=== PATIENT | female | born 1945 | race Caucasian/White ===

== ENCOUNTER 2018-05-11 13:35 | Emergency (ER) | payer MEDICARE ==
[~2018-05-11] VITALS: Ht 160 cm; Wt 81.6 kg
[~2018-05-11 13:35] MED LIST: FERR-15 PO; FLOR250 PO; GLIP1TAB8 PO; INSU100S55 SC; LACT10SO1 PO; LANS30EC68 PO; LEVO750T2 PO; LISI2.5T5 PO; METO25TA PO; MIC5 PO; SIMV20TA1 PO; SUCR1TAB56 PO; [UNRECOGNIZED DRUG - CODE] PO
[2018-05-11 13:37] VITALS: BP 178/82
--- NOTE | 2018-05-11 13:43 | NUR ---
A 72 YO F BIB DAUGHTER W/ C/O FACIAL DROOP AND NECK PAIN SINCE 0830 THIS MORNING WHEN SHE WOKE UP. DENIES N/V. BL WOOL TAMPER SYMMETRY. NO WEAKNESS NOTED. PT REPORTS BL EYE PAIN. AAOX4, GCS 15. SPEAKING IN FULL, COMPLETE SENTENCES. RR EVEN AND UNLABORED, LUNGS BL CLEAR. SKIN WARM, DRY TO THE TOUCH. PT AMBULATORY W/ STEADY GAIT, NO LEG WEAKNESS. L SIDED FACIAL DROOP NOTED WITH WRINKLING OF THE FOREHEAD. CARDINAL GAZES INTACT. PERRLA 3MM BILAT. SMILE ASSYMETRY. 9/10 PAIN IN NECK SINCE 0830 AM. ER NOTIFIED. SAFETY PRECAUTIONS IMPLEMENTED. DAUGHTER AT BEDSIDE. WILL CONTINUE TO MONITOR.
[2018-05-11] MEDS ORDERED: KETOROLAC 30 MG/ML VIAL IM ONE (14:10)
[2018-05-11] MEDS ORDERED: ACYCLOVIR 200 MG CAP PO ONE (14:10)
[2018-05-11] MEDS ORDERED: ONDANSETRON 4 MG/2 ML VIAL IVP ONE (14:10)
[2018-05-11] MEDS ORDERED: DEXAMETHASONE 10 MG/ML VIAL IM ONE (14:10)
[2018-05-11 14:32] LABS: BASOPHILS % (AUTO) 0.3 % (0.0-2.0); EOSINOPHILS # (AUTO) 0.3 K/uL (0-0.4); EOSINOPHILS % (AUTO) 4.3 % (0.0-4.0); HEMATOCRIT 30.4 % (36-48); HEMOGLOBIN 9.7 g/dL (12.0-16.0); LYMPHOCYTES # (AUTO) 1.2 K/uL (2.5-16.5); LYMPHOCYTES % (AUTO) 19.5 % (20.5-51.1); MEAN CORPUSCULAR HEMOGLOBIN 20 pg (27-31); MEAN CORPUSCULAR HGB CONC 32 g/dL (33-37); MEAN CORPUSCULAR VOLUME 61.4 fL (80-94); MONOCYTES # (AUTO) 0.3 K/uL (0.8-1.0); NEUTROPHILS # (AUTO) 4.4 K/uL (1.8-7.7); NEUTROPHILS % (AUTO) 70.9 % (42.2-75.2); PLATELET COUNT (AUTO) 245 K/uL (140-450); RED BLOOD CELL COUNT(AUTO) 4.95 MIL/uL (4.20-5.40); RED CELL DISTRIBUTION WIDTH 15.8 % (11.6-13.7); WHITE BLOOD COUNT (AUTO) 6.3 K/uL (4.8-10.8)
--- NOTE | 2018-05-11 14:45 | NUR ---
PT. RESTING COMFORTABLY IN BED, RR EVEN AND UNLABORED. WILL CONTINUE TO MONITOR. VSS.
[2018-05-11 14:51] LABS: APPEARANCE,URINE CLEAR (CLEAR); BILIRUBIN,URINE NEGATIVE (NEGATIVE); BLOOD, URINE MODERATE (NEGATIVE); COLOR,URINE YELLOW (YELLOW); NITRITE, URINE NEGATIVE (NEGATIVE); PH,URINE 7.5 (5.0-9.0); UGLUCOSE NEGATIVE (NEGATIVE)
[2018-05-11 14:52] LABS: ANION GAP 12.5 (8-16); ASPARTATE AMINOTRANSFERASE 32 U/L (15-37); CARBON DIOXIDE 28.2 mmol/L (21-32); CHLORIDE 101 mmol/L (98-107); CREATININE 1.3 mg/dL (0.6-1.3); GLUCOSE 179 mg/dL (74-106); POTASSIUM 4.7 mmol/L (3.5-5.1); SODIUM SERUM 137 mmol/L (136-145); TOTAL BILIRUBIN 0.7 mg/dL (0.0-1.0); UREA NITROGEN, BLOOD 30 mg/dL (7-18)
[2018-05-11 14:54] LABS: LEUKOCYTE ESTERASE ,URINE 4+ (NEGATIVE)
[2018-05-11 15:02] LABS: PROTHROMBIN TIME 9.6 secs (10.8-13.4)
[2018-05-11 15:12] LABS: RBC,URINE 0-5 (RARE) /HPF (0-5); WBC,URINE 20-60 /HPF (0-5)
--- NOTE | 2018-05-11 15:16 | NUR ---
PT TAKEN TO CT SCAN VIA GURNEY BY CONTRACT ADMIN
--- NOTE | 2018-05-11 16:00 | NUR ---
PT. RESTING COMFORTABLY IN BED, RR EVEN AND UNLABORED. VSS. WILL CONTINUE TO MONITOR.
[2018-05-11 16:50] VITALS: BP 155/75
--- NOTE | 2018-05-11 16:50 | NUR ---
Patient discharged with v/s stable. Written and verbal after care instructions given and explained. Patient alert, oriented and verbalized understanding of instructions. Ambulatory with steady gait. All questions addressed prior to discharge. ID band removed. Patient advised to follow up with PMD. Rx of ACYCLOVIR 200MG , PREDNISONE 10MG given. Patient educated on indication of medication including possible reaction and side effects. Opportunity to ask questions provided and answered.
== END 2018-05-11 16:50 | disposition home or self-care (01) ==
LOC: MED 13:35
DX: G51.0 Bell's palsy (principal); E11.9 Type 2 diabetes mellitus without complications; I10 Essential (primary) hypertension; Z79.899 Other long term (current) drug therapy; Z79.84 Long term (current) use of oral hypoglycemic drugs
CPT/HCPCS: 36415; 70450; 71045; 80053; 81001; 82948; 84484; 85025; 85610; 85651; 85730; 86140; 87086; 96372; 96374; 99284; J1100; J1885; J2405; Q0092; 87186; 93005

== ENCOUNTER 2023-05-01 11:29 | Emergency (ER) | payer MEDICARE, OTHER ==
[~2023-05-01] VITALS: Ht 160 cm; Wt 51.3 kg
[~2023-05-01 11:29] MED LIST changes: +GLIP1TAB40 PO; -GLIP1TAB8 PO; +GLYB-200 PO; +LACT-103 PO; -LACT10SO1 PO; -LEVO750T2 PO; +LISI2.5T14 PO; -LISI2.5T5 PO; -MIC5 PO; +SIMV-372 PO; -SIMV20TA1 PO
[2023-05-01 11:52] VITALS: BP 145/67; PULSE 97; RESP 20; TEMP 97.5; O2SAT 100
== END 2023-05-01 12:04 | disposition left against medical advice (07) ==
LOC: MED 11:29
DX: R30.0 Dysuria (principal); Z53.21 Procedure and treatment not carried out due to patient leaving prior to being seen by health care provider
CPT/HCPCS: 99281

== ENCOUNTER 2024-02-20 18:05 | Inpatient (IN) | payer OTHER ==
[~2024-02-20] VITALS: Ht 147.3 cm; Wt 53.1 kg
[~2024-02-20 18:05] MED LIST changes: -LACT-103 PO; +LACT-191 PO
[2024-02-20 18:10] VITALS: BP 143/59; PULSE 85; RESP 18; TEMP 101.4; O2SAT 96
[2024-02-20 18:26] VITALS: O2SAT 95
[2024-02-20 19:03] LABS: BILIRUBIN,URINE 1+ (NEGATIVE); BLOOD, URINE 3+ (NEGATIVE); LEUKOCYTE ESTERASE ,URINE 3+ (NEGATIVE); NITRITE, URINE POSITIVE (NEGATIVE); PH,URINE 5.5 (5.0-9.0); PROTEIN,URINE 3+ (NEGATIVE); UGLUCOSE TRACE (NEGATIVE)
[2024-02-20 19:06] LABS: APPEARANCE,URINE CLOUDY (CLEAR); COLOR,URINE ORANGE (YELLOW)
[2024-02-20] MEDS: NACL 0.9% 1,000 ML IV ONE ×2 (19:07→23:30)
[2024-02-20 19:10] LABS: ICTOTEST POSITIVE (NEGATIVE)
[2024-02-20 19:10] LABS: CHLORIDE 119 mmol/L (98-107); CREATININE 1.4 mg/dL (0.6-1.3); GLUCOSE 111 mg/dL (74-106); POTASSIUM 3.5 mmol/L (3.5-5.1); SODIUM SERUM 141 mmol/L (136-145); UREA NITROGEN, BLOOD 35 mg/dL (7-18)
[2024-02-20 19:11] LABS: INR 1.68 (0.8-1.2); PROTHROMBIN TIME 17.1 secs (10.8-13.4)
[2024-02-20 19:15] LABS: FLU A ANTIGEN negative (NEGATIVE); FLU B ANTIGEN NEGATIVE (NEGATIVE)
[2024-02-20 19:15] LABS: BACTERIA,URINE 2+ /HPF (None Seen); MUCUS,URINE 1+ /LPF (None Seen); RBC,URINE 11-20 (MOD) /HPF (0-5); SQUAMOUS EPITHELIAL CELL,UR 0-3 (FEW) /LPF (0-3 (FEW)); WBC,URINE TOO MANY TO COUNT /HPF (0-5)
[2024-02-20 19:16] LABS: AMPHETAMINE, URINE NEGATIVE ng/ml (NEG <=1000); BARBITURATE, URINE NEGATIVE ng/ml (NEG <=200); BENZODIAZEPINE, URINE NEGATIVE ng/mL (NEG <=200); CANNABINOID, URINE NEGATIVE ng/mL (NEG <=50); COCAINE, URINE NEGATIVE ng/mL (NEG <=300); OPIATE, URINE POSITIVE ng/mL (NEG <=2000); PHENCYCLIDINE SCREEN,URINE NEGATIVE ng/mL (NEG <=25)
[2024-02-20 19:18] LABS: CREATINE KINASE, TOTAL 29 U/L (26-192)
[2024-02-20 19:31] LABS: ANION GAP 21.6 (8-16); CARBON DIOXIDE 3.9 mmol/L (21-32); LACTIC ACID 2.6 mmol/L (0.4-2.0); WHITE BLOOD COUNT (AUTO) 1.1 K/uL (4.8-10.8)
[2024-02-20 19:32] LABS: CALCIUM 4.5 mg/dL (8.5-10.1)
[2024-02-20 19:34] LABS: ACETONE, SERUM Negative (NEGATIVE)
[2024-02-20 19:35] LABS: HEMATOCRIT 12.9 % (36-48); MEAN CORPUSCULAR HEMOGLOBIN 19 pg (27-31); MEAN CORPUSCULAR HGB CONC 31 g/dL (33-37); RED CELL DISTRIBUTION WIDTH 15.9 % (11.6-13.7)
[2024-02-20 19:36] LABS: EOSINOPHILS % (AUTO) 0.7 % (0.0-4.0); LYMPHOCYTES # (AUTO) 0.1 K/uL (2.5-16.5); LYMPHOCYTES % (AUTO) 8.4 % (20.5-51.1); MONOCYTES % (AUTO) 1.4 % (1.7-9.3); NEUTROPHILS # (AUTO) 0.9 K/uL (1.8-7.7); NEUTROPHILS % (AUTO) 89.5 % (42.2-75.2); PLATELET COUNT (AUTO) 84 K/uL (140-450)
[2024-02-20 19:49] LABS: BASOPHILS % (AUTO) 0.1 % (0.0-2.0); EOSINOPHILS % (AUTO) 0.2 % (0.0-4.0); LYMPHOCYTES # (AUTO) 0.3 K/uL (2.5-16.5); LYMPHOCYTES % (AUTO) 4.3 % (20.5-51.1); MEAN CORPUSCULAR HEMOGLOBIN 19 pg (27-31); MEAN CORPUSCULAR HGB CONC 31 g/dL (33-37); MEAN CORPUSCULAR VOLUME 61.9 fL (80-94); MONOCYTES # (AUTO) 0.1 K/uL (0.8-1.0); NEUTROPHILS # (AUTO) 5.7 K/uL (1.8-7.7); NEUTROPHILS % (AUTO) 93.4 % (42.2-75.2); PLATELET COUNT (AUTO) 115 K/uL (140-450); RED CELL DISTRIBUTION WIDTH 16.3 % (11.6-13.7); WHITE BLOOD COUNT (AUTO) 6.1 K/uL (4.8-10.8)
[2024-02-20] MEDS ORDERED: cefTRIAXone 1,000 MG VIAL ONE (19:56)
[2024-02-20] MEDS: ACETAMINOPHEN 650 MG SUPP RC ONE (20:08)
[2024-02-20 20:09] LABS: HEMOGLOBIN 6.5 g/dL (12.0-16.0)
[2024-02-20 20:18] LABS: ANION GAP 22.2 (8-16); CALCIUM 7.5 mg/dL (8.5-10.1); CARBON DIOXIDE 10.8 mmol/L (21-32); CHLORIDE 105 mmol/L (98-107); CREATININE 2.4 mg/dL (0.6-1.3); GLUCOSE 170 mg/dL (74-106); SODIUM SERUM 133 mmol/L (136-145); UREA NITROGEN, BLOOD 56 mg/dL (7-18)
[2024-02-20] MEDS ORDERED: MAG SULF 2000 MG/WATER PREMIX 50 ML IV PRN (20:30)
[2024-02-20] MEDS ORDERED: POTASSIUM CHLORIDE 10 MEQ TABER PO PRN (20:30)
[2024-02-20] MEDS ORDERED: LORazepam 1 MG TAB PO PRN (20:30)
[2024-02-20] MEDS ORDERED: POTASSIUM CHL 20MEQ/D5-NS 1,000 ML IV ONE (20:30)
[2024-02-20] MEDS ORDERED: DEXTROSE 50% 50 ML SYR IVP PRN (20:40)
[2024-02-20] MEDS ORDERED: NITROGLYCERIN 0.4 MG TAB SL PRN (20:40)
[2024-02-20] MEDS: NACL 0.9% 1,000 ML IV SCH (20:59)
[2024-02-20] MEDS: FERROUS SULFATE 325 MG TABEC PO SCH (21:00)
[2024-02-20] MEDS: METOPROLOL 25 MG TAB PO SCH (21:00)
[2024-02-20] MEDS ORDERED: PIPERACILLIN/TAZOBACTAM 3.375 GM in DEXTROSE 5% 50 ML IV SCH (21:00)
[2024-02-20] MEDS: SIMVASTATIN 20 MG TAB PO SCH (21:00)
[2024-02-20] MEDS ORDERED: PIPERACILLIN/TAZOBACTAM 2.25 GM VIAL IV ONE (21:04)
[2024-02-20] MEDS: PIPERACILLIN/TAZOBACTAM 2.25 GM in DEXTROSE 5% 50 ML IV SCH (21:06)
[2024-02-20] MEDS: BLOOD GLUCOSE MONITORING 1 DEV DEV FS SCH (22:27)
[2024-02-20] MEDS ORDERED: NOREPINEPHRINE 4 MG/4 ML VIAL IV ONE (23:12)
[2024-02-20] MEDS: NOREPINEPHRINE 4 MG in DEXTROSE 5% 250 ML IV PRN (23:23)
[2024-02-21] VITALS (22 sets, daily range): BP systolic 99–158; BP diastolic 50–127; PULSE 88–119; RESP 23–40; TEMP 98.2–98.9; O2SAT 90–99
[2024-02-21 00:34] LABS: LACTIC ACID 1.8 mmol/L (0.4-2.0)
[2024-02-21] MEDS: ACETAMINOPHEN 325 MG TAB PO PRN (05:43)
[2024-02-21] MEDS: PIPERACILLIN/TAZOBACTAM 2.25 GM VIAL IV ONE (05:44)
[2024-02-21] MEDS: ECOTRIN 81 MG TABEC PO SCH (08:41)
[2024-02-21 09:42] LABS: ALANINE AMINOTRANSFERASE 18 U/L (12-78); ALBUMIN 2.4 g/dL (3.4-5.0); ALKALINE PHOSPHATASE 66 U/L (50-136); ANION GAP 22.4 (8-16); ASPARTATE AMINOTRANSFERASE 24 U/L (15-37); CALCIUM 6.8 mg/dL (8.5-10.1); CARBON DIOXIDE 10.6 mmol/L (21-32); CHLORIDE 105 mmol/L (98-107); CREATININE 2.3 mg/dL (0.6-1.3); GLUCOSE 242 mg/dL (74-106); PHOSPHORUS 3.5 mg/dL (2.5-4.9); SODIUM SERUM 133 mmol/L (136-145); TOTAL BILIRUBIN 1.3 mg/dL (0.0-1.0); TOTAL PROTEIN, SERUM 5.5 g/dL (6.4-8.2); UREA NITROGEN, BLOOD 53 mg/dL (7-18)
[2024-02-21 09:46] LABS: MAGNESIUM 0.9 mg/dL (1.8-2.4)
[2024-02-21 09:57] LABS: BASOPHILS % (AUTO) 0.1 % (0.0-2.0); EOSINOPHILS % (AUTO) 0.2 % (0.0-4.0); LYMPHOCYTES # (AUTO) 0.4 K/uL (2.5-16.5); LYMPHOCYTES % (AUTO) 2.5 % (20.5-51.1); MEAN CORPUSCULAR HEMOGLOBIN 20 pg (27-31); MEAN CORPUSCULAR HGB CONC 32 g/dL (33-37); MONOCYTES # (AUTO) 0.6 K/uL (0.8-1.0); MONOCYTES % (AUTO) 4.2 % (1.7-9.3); NEUTROPHILS # (AUTO) 14.1 K/uL (1.8-7.7); PLATELET COUNT (AUTO) 137 K/uL (140-450); RED CELL DISTRIBUTION WIDTH 20.8 % (11.6-13.7); WHITE BLOOD COUNT (AUTO) 15.2 K/uL (4.8-10.8)
[2024-02-21] MEDS: MAG SULF 2000 MG/WATER PREMIX 100 ML IV SCH (10:41)
[2024-02-21 10:44] LABS: BLOOD GAS PH 7.355 (7.350-7.450)
[2024-02-21 10:45] LABS: BLOOD GAS BASE EXCESS -14.5 mmol/L (-2.0-3.0); BLOOD GAS HCO3 9.3 mmol/L (21.0-28.0); BLOOD GAS PCO2 17.1 mmHg (32.0-45.0); BLOOD GAS PO2 91.1 mmHg (83.0-108.0)
[2024-02-21 10:46] LABS: BLOOD GAS O2 SAT% 96.8 % (94.0-98.0); FRACTIONATED INSPIRED OXYGEN 0.28 % (0.21-100.00)
[2024-02-21] MEDS: SODIUM BICARBONATE 8.4% 100 MEQ in DEXTROSE 5% 1,000 ML IV SCH (11:45)
[2024-02-21] MEDS: INSULIN LISPRO SLIDING SCALE 100 UNITS/ML VIAL SUBQ PRN (11:53)
[2024-02-21] MEDS: MIDODRINE 5 MG TAB PO SCH (14:29)
[2024-02-21] MEDS: AZITHROMYCIN 500 MG in DEXTROSE 5% 250 ML IV SCH (14:31)
[2024-02-21] MEDS: SODIUM BICARBONATE 8.4% 150 MEQ in DEXTROSE 5% 1,000 ML IV SCH (16:21)
[2024-02-21 18:55] LABS: HEMOGLOBIN 7.8 g/dL (12.0-16.0)
[2024-02-21 19:16] LABS: ANION GAP 21.4 (8-16); CALCIUM 7.4 mg/dL (8.5-10.1); CHLORIDE 104 mmol/L (98-107); CREATININE 1.9 mg/dL (0.6-1.3); GLUCOSE 251 mg/dL (74-106); POTASSIUM 4.4 mmol/L (3.5-5.1); SODIUM SERUM 134 mmol/L (136-145); UREA NITROGEN, BLOOD 50 mg/dL (7-18)
[2024-02-22] VITALS (30 sets, daily range): BP systolic 94–152; BP diastolic 35–76; PULSE 71–111; RESP 19–36; TEMP 97.6–99.1; O2SAT 92–100
[2024-02-22 05:06] LABS: BASOPHILS % (AUTO) 0.2 % (0.0-2.0); EOSINOPHILS # (AUTO) 0.3 K/uL (0-0.4); EOSINOPHILS % (AUTO) 3.2 % (0.0-4.0); HEMATOCRIT 22.6 % (36-48); HEMOGLOBIN 7.5 g/dL (12.0-16.0); LYMPHOCYTES # (AUTO) 0.2 K/uL (2.5-16.5); MEAN CORPUSCULAR HEMOGLOBIN 21 pg (27-31); MEAN CORPUSCULAR HGB CONC 33 g/dL (33-37); MEAN CORPUSCULAR VOLUME 61.8 fL (80-94); MONOCYTES # (AUTO) 0.5 K/uL (0.8-1.0); MONOCYTES % (AUTO) 5.3 % (1.7-9.3); NEUTROPHILS # (AUTO) 9.1 K/uL (1.8-7.7); NEUTROPHILS % (AUTO) 89.3 % (42.2-75.2); PLATELET COUNT (AUTO) 116 K/uL (140-450); RED BLOOD CELL COUNT(AUTO) 3.67 MIL/uL (4.20-5.40); RED CELL DISTRIBUTION WIDTH 19.5 % (11.6-13.7); WHITE BLOOD COUNT (AUTO) 10.2 K/uL (4.8-10.8)
[2024-02-22 05:40] LABS: ALANINE AMINOTRANSFERASE 14 U/L (12-78); ALBUMIN 2.1 g/dL (3.4-5.0); ALKALINE PHOSPHATASE 67 U/L (50-136); ANION GAP 12.3 (8-16); ASPARTATE AMINOTRANSFERASE 24 U/L (15-37); CALCIUM 7.2 mg/dL (8.5-10.1); CARBON DIOXIDE 23.1 mmol/L (21-32); CHLORIDE 103 mmol/L (98-107); CREATININE 1.6 mg/dL (0.6-1.3); GLUCOSE 302 mg/dL (74-106); MAGNESIUM 2.1 mg/dL (1.8-2.4); PHOSPHORUS 2.3 mg/dL (2.5-4.9); POTASSIUM 3.4 mmol/L (3.5-5.1); SODIUM SERUM 135 mmol/L (136-145); TOTAL BILIRUBIN 0.9 mg/dL (0.0-1.0); TOTAL PROTEIN, SERUM 5.3 g/dL (6.4-8.2); UREA NITROGEN, BLOOD 44 mg/dL (7-18)
[2024-02-22] MEDS: ASPIRIN 81 MG TAB.CHEW ONE (07:01)
[2024-02-22] MEDS: ASPIRIN 81 MG TAB.CHEW PO STA (07:01)
[2024-02-22] MEDS ORDERED: IPRATROPIUM 0.02% 0.5 MG/2.5 ML NEBU INH SCH (07:15)
[2024-02-22] MEDS ORDERED: LEVALBUTEROL 1.25 MG/0.5 ML NEBU INH SCH (07:15)
[2024-02-22] MEDS ORDERED: LEVALBUTEROL 1.25 MG/0.5 ML NEBU INH PRN (07:20)
[2024-02-22] MEDS ORDERED: IPRATROPIUM 0.02% 0.5 MG/2.5 ML NEBU INH PRN (07:20)
[2024-02-22] MEDS: LACTATED RINGERS 1,000 ML IV SCH (10:30)
[2024-02-22] MEDS: AMIODARONE 150 MG in DEXTROSE 5% 100 ML IV SCH (10:54)
[2024-02-22] MEDS: AMIODARONE 450 MG in DEXTROSE 5% 250 ML IV SCH (11:10)
[2024-02-22] MEDS: POTASSIUM CHLORIDE 40 MEQ, LIDOCAINE 1% 25 MG in NACL 0.9% 250 ML IV SCH (11:19)
[2024-02-22] MEDS: LEVALBUTEROL 1.25 MG/0.5 ML NEBU INH SCH (11:32)
[2024-02-22] MEDS: IPRATROPIUM 0.02% 0.5 MG/2.5 ML NEBU INH SCH (11:32)
[2024-02-22] MEDS: IPRATROPIUM 0.02% 0.5 MG/2.5 ML NEBU INH ONE (11:43)
[2024-02-22] MEDS: LEVALBUTEROL 1.25 MG/0.5 ML NEBU INH ONE (11:45)
[2024-02-22] MEDS: phenoL 1.4% SPRAY 20 ML BTL MM PRN (14:46)
[2024-02-22] MEDS: MEROPENEM 1,000 MG in NACL 0.9% 50 ML IV SCH (20:16)
[2024-02-23] VITALS (30 sets, daily range): BP systolic 111–150; BP diastolic 34–75; PULSE 71–97; RESP 19–30; TEMP 97.5–99; O2SAT 96–100
[2024-02-23] MEDS ORDERED: Z-GUARD PASTE TP PRN (00:45)
[2024-02-23] MEDS: MEROPENEM 500 MG in NACL 0.9% 50 ML IV SCH (04:59)
[2024-02-23 05:54] LABS: ALANINE AMINOTRANSFERASE 16 U/L (12-78); ALBUMIN 1.8 g/dL (3.4-5.0); ALKALINE PHOSPHATASE 75 U/L (50-136); ANION GAP 11.5 (8-16); ASPARTATE AMINOTRANSFERASE 15 U/L (15-37); CHLORIDE 103 mmol/L (98-107); CREATININE 1.5 mg/dL (0.6-1.3); GLUCOSE 166 mg/dL (74-106); PHOSPHORUS 2.3 mg/dL (2.5-4.9); POTASSIUM 3.5 mmol/L (3.5-5.1); SODIUM SERUM 136 mmol/L (136-145); TOTAL BILIRUBIN 1.2 mg/dL (0.0-1.0); TOTAL PROTEIN, SERUM 4.8 g/dL (6.4-8.2); UREA NITROGEN, BLOOD 38 mg/dL (7-18)
[2024-02-23 07:22] LABS: HEMATOCRIT 22.2 % (36-48); HEMOGLOBIN 7.3 g/dL (12.0-16.0); MEAN CORPUSCULAR HEMOGLOBIN 21 pg (27-31); MEAN CORPUSCULAR HGB CONC 33 g/dL (33-37); MEAN CORPUSCULAR VOLUME 62.9 fL (80-94); PLATELET COUNT (AUTO) 91 K/uL (140-450); RED BLOOD CELL COUNT(AUTO) 3.54 MIL/uL (4.20-5.40); RED CELL DISTRIBUTION WIDTH 19.1 % (11.6-13.7); WHITE BLOOD COUNT (AUTO) 7.4 K/uL (4.8-10.8)
[2024-02-23 07:39] LABS: ANISOCYTOSIS 1+; BASOPHILS % (MANUAL) 0 % (0-2); BLASTS, MANUAL % 0 % (0-0); EOSINOPHILS % (MANUAL) 2 % (0-4); LYMPHOCYTES % (MANUAL) 5 % (20-46); METAMYELOCYTES % 0 % (0-0); MONOCYTES % (MANUAL) 3 % (5-12); MYELOCYTES % 0 % (0-0); OTHER CELLS,MANUAL % 0 (0-0); PLASMA CELLS 0; PLATELET ESTIMATE DECREASED; PROMYELOCYTES % 0 % (0-0); SMUDGE CELLS 0
[2024-02-23 07:40] LABS: OVALOCYTES 1+; SCHISTOCYTES 1+
[2024-02-23] MEDS: FUROSEMIDE 40 MG/4 ML VIAL IVP SCH (08:10)
[2024-02-23] MEDS: AMIODARONE 200 MG TAB PO SCH (10:32)
[2024-02-23] MEDS: ATORVASTATIN 20 MG TAB PO SCH (20:32)
[2024-02-23] MEDS: METOPROLOL 25 MG TAB PO SCH (20:36)
[2024-02-24] VITALS (21 sets, daily range): BP systolic 118–148; BP diastolic 31–77; PULSE 80–96; RESP 19–26; TEMP 97.6–98.6; O2SAT 95–99
[2024-02-24 05:23] LABS: HEMATOCRIT 21.7 % (36-48); HEMOGLOBIN 7.1 g/dL (12.0-16.0); MEAN CORPUSCULAR HEMOGLOBIN 20 pg (27-31); MEAN CORPUSCULAR HGB CONC 33 g/dL (33-37); MEAN CORPUSCULAR VOLUME 62.3 fL (80-94); PLATELET COUNT (AUTO) 91 K/uL (140-450); RED BLOOD CELL COUNT(AUTO) 3.48 MIL/uL (4.20-5.40); RED CELL DISTRIBUTION WIDTH 18.8 % (11.6-13.7)
[2024-02-24 05:33] LABS: ALANINE AMINOTRANSFERASE 30 U/L (12-78); ALBUMIN 1.8 g/dL (3.4-5.0); ALKALINE PHOSPHATASE 120 U/L (50-136); ANION GAP 10.8 (8-16); ASPARTATE AMINOTRANSFERASE 35 U/L (15-37); CALCIUM 7.7 mg/dL (8.5-10.1); CARBON DIOXIDE 26.6 mmol/L (21-32); CHLORIDE 104 mmol/L (98-107); CREATININE 1.3 mg/dL (0.6-1.3); GLUCOSE 208 mg/dL (74-106); MAGNESIUM 1.7 mg/dL (1.8-2.4); PHOSPHORUS 2.2 mg/dL (2.5-4.9); POTASSIUM 3.4 mmol/L (3.5-5.1); SODIUM SERUM 138 mmol/L (136-145); TOTAL BILIRUBIN 1.1 mg/dL (0.0-1.0); TOTAL PROTEIN, SERUM 4.9 g/dL (6.4-8.2); UREA NITROGEN, BLOOD 34 mg/dL (7-18)
[2024-02-24 06:00] LABS: EOSINOPHILS % (MANUAL) 1 % (0-4); LYMPHOCYTES % (MANUAL) 15 % (20-46); MONOCYTES % (MANUAL) 4 % (5-12)
[2024-02-24] MEDS: MAG SULF 2000 MG/WATER PREMIX 50 ML IV PRN (08:21)
[2024-02-24] MEDS: POTASSIUM CHLORIDE 40 MEQ, LIDOCAINE 1% 25 MG in NACL 0.9% 250 ML IV PRN (08:46)
[2024-02-24] MEDS: POTASSIUM CHLORIDE 10 MEQ TABER PO ONE (16:35)
[2024-02-25] VITALS (16 sets, daily range): BP systolic 115–133; BP diastolic 44–61; PULSE 71–91; RESP 16–19; TEMP 97–97.6; O2SAT 92–99
[2024-02-25 06:27] LABS: BASOPHILS % (AUTO) 0.7 % (0.0-2.0); EOSINOPHILS # (AUTO) 0.2 K/uL (0-0.4); EOSINOPHILS % (AUTO) 4.1 % (0.0-4.0); HEMOGLOBIN 7.2 g/dL (12.0-16.0); LYMPHOCYTES # (AUTO) 0.7 K/uL (2.5-16.5); LYMPHOCYTES % (AUTO) 12.5 % (20.5-51.1); MEAN CORPUSCULAR HEMOGLOBIN 20 pg (27-31); MEAN CORPUSCULAR HGB CONC 33 g/dL (33-37); MEAN CORPUSCULAR VOLUME 62.6 fL (80-94); MONOCYTES # (AUTO) 0.5 K/uL (0.8-1.0); MONOCYTES % (AUTO) 9.3 % (1.7-9.3); NEUTROPHILS # (AUTO) 4.1 K/uL (1.8-7.7); NEUTROPHILS % (AUTO) 73.4 % (42.2-75.2); PLATELET COUNT (AUTO) 116 K/uL (140-450); RED BLOOD CELL COUNT(AUTO) 3.52 MIL/uL (4.20-5.40); RED CELL DISTRIBUTION WIDTH 18.6 % (11.6-13.7); WHITE BLOOD COUNT (AUTO) 5.6 K/uL (4.8-10.8)
[2024-02-25 06:39] LABS: ALANINE AMINOTRANSFERASE 55 U/L (12-78); ALBUMIN 1.9 g/dL (3.4-5.0); ALKALINE PHOSPHATASE 140 U/L (50-136); ANION GAP 10.2 (8-16); ASPARTATE AMINOTRANSFERASE 54 U/L (15-37); CARBON DIOXIDE 28.2 mmol/L (21-32); CHLORIDE 105 mmol/L (98-107); CREATININE 1.1 mg/dL (0.6-1.3); GLUCOSE 200 mg/dL (74-106); MAGNESIUM 1.7 mg/dL (1.8-2.4); PHOSPHORUS 2.5 mg/dL (2.5-4.9); POTASSIUM 4.4 mmol/L (3.5-5.1); SODIUM SERUM 139 mmol/L (136-145); TOTAL BILIRUBIN 0.9 mg/dL (0.0-1.0); TOTAL PROTEIN, SERUM 4.9 g/dL (6.4-8.2); UREA NITROGEN, BLOOD 28 mg/dL (7-18)
[2024-02-25] MEDS: AMIODARONE 200 MG TAB PO SCH (12:26)
[2024-02-26] VITALS (12 sets, daily range): BP systolic 117–141; BP diastolic 51–63; PULSE 77–86; RESP 16–20; TEMP 97.1–98.3; O2SAT 90–100
[2024-02-26 06:43] LABS: BASOPHILS % (AUTO) 0.5 % (0.0-2.0); EOSINOPHILS # (AUTO) 0.2 K/uL (0-0.4); EOSINOPHILS % (AUTO) 3.3 % (0.0-4.0); HEMATOCRIT 23.6 % (36-48); HEMOGLOBIN 7.6 g/dL (12.0-16.0); LYMPHOCYTES # (AUTO) 1.1 K/uL (2.5-16.5); LYMPHOCYTES % (AUTO) 15.9 % (20.5-51.1); MEAN CORPUSCULAR HEMOGLOBIN 20 pg (27-31); MEAN CORPUSCULAR HGB CONC 32 g/dL (33-37); MEAN CORPUSCULAR VOLUME 63.3 fL (80-94); MONOCYTES # (AUTO) 0.5 K/uL (0.8-1.0); MONOCYTES % (AUTO) 7.7 % (1.7-9.3); NEUTROPHILS # (AUTO) 4.9 K/uL (1.8-7.7); NEUTROPHILS % (AUTO) 72.6 % (42.2-75.2); PLATELET COUNT (AUTO) 133 K/uL (140-450); RED BLOOD CELL COUNT(AUTO) 3.73 MIL/uL (4.20-5.40); RED CELL DISTRIBUTION WIDTH 18.5 % (11.6-13.7); WHITE BLOOD COUNT (AUTO) 6.7 K/uL (4.8-10.8)
[2024-02-26] MEDS: FUROSEMIDE 20 MG/2 ML VIAL IVP SCH (08:54)
[2024-02-26] MEDS: AMIODARONE 200 MG TAB PO SCH (08:54)
[2024-02-26 10:45] LABS: ALANINE AMINOTRANSFERASE 62 U/L (12-78); ALBUMIN 2.1 g/dL (3.4-5.0); ALKALINE PHOSPHATASE 148 U/L (50-136); ANION GAP 13.9 (8-16); ASPARTATE AMINOTRANSFERASE 38 U/L (15-37); CALCIUM 8.6 mg/dL (8.5-10.1); CARBON DIOXIDE 27.7 mmol/L (21-32); CHLORIDE 102 mmol/L (98-107); CREATININE 1.2 mg/dL (0.6-1.3); GLUCOSE 217 mg/dL (74-106); MAGNESIUM 1.4 mg/dL (1.8-2.4); PHOSPHORUS 3.2 mg/dL (2.5-4.9); POTASSIUM 4.6 mmol/L (3.5-5.1); SODIUM SERUM 139 mmol/L (136-145); TOTAL BILIRUBIN 0.8 mg/dL (0.0-1.0); TOTAL PROTEIN, SERUM 5.2 g/dL (6.4-8.2); UREA NITROGEN, BLOOD 26 mg/dL (7-18)
[2024-02-26] MEDS: INSULIN LANTUS 100 UNITS/ML 10 ML VIAL SUBQ SCH (21:20)
[2024-02-27] VITALS (10 sets, daily range): BP systolic 117–131; BP diastolic 44–59; PULSE 72–84; RESP 16–19; TEMP 97.6–99; O2SAT 94–99
[2024-02-27 06:35] LABS: BASOPHILS # (AUTO) 0.1 K/uL (0.00-0.22); BASOPHILS % (AUTO) 0.6 % (0.0-2.0); EOSINOPHILS # (AUTO) 0.1 K/uL (0-0.4); EOSINOPHILS % (AUTO) 1.3 % (0.0-4.0); HEMATOCRIT 22.8 % (36-48); HEMOGLOBIN 7.3 g/dL (12.0-16.0); LYMPHOCYTES % (AUTO) 12.1 % (20.5-51.1); MEAN CORPUSCULAR HEMOGLOBIN 20 pg (27-31); MEAN CORPUSCULAR HGB CONC 32 g/dL (33-37); MEAN CORPUSCULAR VOLUME 63.2 fL (80-94); MONOCYTES # (AUTO) 0.5 K/uL (0.8-1.0); MONOCYTES % (AUTO) 5.6 % (1.7-9.3); NEUTROPHILS # (AUTO) 6.5 K/uL (1.8-7.7); NEUTROPHILS % (AUTO) 80.4 % (42.2-75.2); PLATELET COUNT (AUTO) 166 K/uL (140-450); RED BLOOD CELL COUNT(AUTO) 3.61 MIL/uL (4.20-5.40); RED CELL DISTRIBUTION WIDTH 17.6 % (11.6-13.7); WHITE BLOOD COUNT (AUTO) 8.1 K/uL (4.8-10.8)
[2024-02-27 07:26] LABS: ANION GAP 12.1 (8-16); CALCIUM 8.5 mg/dL (8.5-10.1); CARBON DIOXIDE 29.9 mmol/L (21-32); CHLORIDE 99 mmol/L (98-107); CREATININE 1.3 mg/dL (0.6-1.3); GLUCOSE 279 mg/dL (74-106); SODIUM SERUM 136 mmol/L (136-145); UREA NITROGEN, BLOOD 23 mg/dL (7-18)
[2024-02-28] VITALS (10 sets, daily range): BP systolic 101–109; BP diastolic 47–50; PULSE 59–87; RESP 16–20; TEMP 96.9–98.5; O2SAT 95–99
[2024-02-28 07:09] LABS: BASOPHILS % (AUTO) 0.4 % (0.0-2.0); EOSINOPHILS # (AUTO) 0.1 K/uL (0-0.4); EOSINOPHILS % (AUTO) 0.7 % (0.0-4.0); HEMATOCRIT 22.4 % (36-48); HEMOGLOBIN 7.2 g/dL (12.0-16.0); LYMPHOCYTES # (AUTO) 1.1 K/uL (2.5-16.5); LYMPHOCYTES % (AUTO) 11.8 % (20.5-51.1); MEAN CORPUSCULAR HEMOGLOBIN 20 pg (27-31); MEAN CORPUSCULAR HGB CONC 32 g/dL (33-37); MEAN CORPUSCULAR VOLUME 63.3 fL (80-94); MONOCYTES # (AUTO) 0.5 K/uL (0.8-1.0); MONOCYTES % (AUTO) 5.6 % (1.7-9.3); NEUTROPHILS # (AUTO) 7.3 K/uL (1.8-7.7); NEUTROPHILS % (AUTO) 81.5 % (42.2-75.2); PLATELET COUNT (AUTO) 189 K/uL (140-450); RED BLOOD CELL COUNT(AUTO) 3.54 MIL/uL (4.20-5.40); RED CELL DISTRIBUTION WIDTH 18.2 % (11.6-13.7); WHITE BLOOD COUNT (AUTO) 8.9 K/uL (4.8-10.8)
[2024-02-28 07:23] LABS: ALANINE AMINOTRANSFERASE 40 U/L (12-78); ALBUMIN 2.2 g/dL (3.4-5.0); ALKALINE PHOSPHATASE 135 U/L (50-136); ANION GAP 11.3 (8-16); ASPARTATE AMINOTRANSFERASE 30 U/L (15-37); CALCIUM 8.4 mg/dL (8.5-10.1); CARBON DIOXIDE 28.8 mmol/L (21-32); CHLORIDE 100 mmol/L (98-107); CREATININE 1.3 mg/dL (0.6-1.3); GLUCOSE 228 mg/dL (74-106); MAGNESIUM 1.4 mg/dL (1.8-2.4); POTASSIUM 5.1 mmol/L (3.5-5.1); SODIUM SERUM 135 mmol/L (136-145); TOTAL BILIRUBIN 0.9 mg/dL (0.0-1.0); TOTAL PROTEIN, SERUM 5.3 g/dL (6.4-8.2); UREA NITROGEN, BLOOD 27 mg/dL (7-18)
[2024-02-28] MEDS: INSULIN LANTUS 100 UNITS/ML 10 ML VIAL SUBQ SCH ×2 (08:40→09:00)
[2024-02-28] MEDS ORDERED: ASPI-1856 PO (12:29)
[2024-02-28] MEDS ORDERED: AMIO200T10 PO (12:29)
[2024-02-28] MEDS ORDERED: MERO500V16 IV (12:37)
[2024-02-29] VITALS (7 sets, daily range): BP systolic 100–106; BP diastolic 45–66; PULSE 59–85; RESP 16–26; TEMP 97.5–98.5; O2SAT 92–96
[2024-02-29 07:58] LABS: ANION GAP 11.6 (8-16); CALCIUM 8.3 mg/dL (8.5-10.1); CHLORIDE 100 mmol/L (98-107); CREATININE 1.4 mg/dL (0.6-1.3); GLUCOSE 286 mg/dL (74-106); POTASSIUM 5.6 mmol/L (3.5-5.1); SODIUM SERUM 132 mmol/L (136-145); UREA NITROGEN, BLOOD 30 mg/dL (7-18)
[2024-02-29] MEDS: NACL 0.9% 1,000 ML IV SCH (11:04)
== END 2024-02-29 19:09 | DRG 871 ==
LOC: MED 18:05 → MTU 20:34 → MIC 23:52 → MTU 02-21 00:31 → MIC 02-21 03:02 → MTU 02-24 16:00
PROVIDERS: ADMIT Student in an Organized Health Care Education/Training Program; ATTEND Student in an Organized Health Care Education/Training Program
PROC: 30233N1 Transfusion of Nonautologous Red Blood Cells into Peripheral Vein, Percutaneous Approach (ICD-10-PCS; principal; 2024-02-21)
DX: A41.9 Sepsis, unspecified organism (principal); E43 Unspecified severe protein-calorie malnutrition; G93.41 Metabolic encephalopathy; N17.0 Acute kidney failure with tubular necrosis; I21.A1 Myocardial infarction type 2; R65.21 Severe sepsis with septic shock; I50.33 Acute on chronic diastolic (congestive) heart failure; J96.01 Acute respiratory failure with hypoxia; E87.1 Hypo-osmolality and hyponatremia; L03.114 Cellulitis of left upper limb; N39.0 Urinary tract infection, site not specified; E87.20 Acidosis, unspecified; I13.0 Hypertensive heart and chronic kidney disease with heart failure and stage 1 through stage 4 chronic kidney disease, or unspecified chronic kidney disease; S27.391A Other injuries of lung, unilateral, initial encounter; N18.9 Chronic kidney disease, unspecified; Z20.822 Contact with and (suspected) exposure to COVID-19; I48.0 Paroxysmal atrial fibrillation; D69.6 Thrombocytopenia, unspecified; D64.9 Anemia, unspecified; E83.42 Hypomagnesemia; B96.89 Other specified bacterial agents as the cause of diseases classified elsewhere; E11.22 Type 2 diabetes mellitus with diabetic chronic kidney disease; E86.0 Dehydration; K80.20 Calculus of gallbladder without cholecystitis without obstruction; Z87.440 Personal history of urinary (tract) infections; Z79.899 Other long term (current) drug therapy; Z68.24 Body mass index [BMI] 24.0-24.9, adult; X58.XXXA Exposure to other specified factors, initial encounter; Y93.89 Activity, other specified; Y92.89 Other specified places as the place of occurrence of the external cause; Y99.8 Other external cause status
CPT/HCPCS: 36415; 36430; 36600; 70450; 71045; 76770; 80048; 80053; 80305; 81001; 82009; 82140; 82272; 82330; 82550; 82607; 82746; 82803; 82948; 83605; 83735; 83880; 84100; 84484; 85018; 85025; 85610; 86886; 86900; 86901; 86920; 87040; 87081; 87086; 87186; 92526; 93005; 93922; 93930; 94640; 96365; 97110; 97116; 97163-GP; 97530; 99291; J0282; J0456; J0696; J1815; J1940; J2001; J2185; J2543; J3475; J3480; J3490; J7030; J7060; J7120; J7612; J7644; P9016; Q0092